=== PATIENT | male | born 1975 | race Caucasian/White ===

== ENCOUNTER 2016-12-11 12:25 | Emergency (ER) | payer BC ==
[2016-12-11 12:43] VITALS: BMI 30.5
[2016-12-11] MEDS ORDERED: ACETAMINOPHEN 500 MG TABLET (FP) PO ONE (13:41)
[2016-12-11] MEDS ORDERED: ACETAMINOPHEN 325 MG TABLET (FP) ONE (13:56)
[2016-12-11] MEDS ORDERED: SODIUM CHLORIDE 1,000 ML IV STA ×2 (13:56→15:22)
--- NOTE | 2016-12-11 14:04 | PDOC ---
History of Present Illness - General History Source: Patient Exam Limitations: No Limitations - History of Present Illness Initial Comments: 12/11/16 13:57 41-year-old male presents the ED with complaints of cough, headache, throat discomfort, and chills for the past 2 days. Patient was sent here by Dr. Cee for further evaluation since he was concerned with the tachycardia and low O2 sat. Patient states was at the office for an annual physical when symptoms were noted. 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 patient denies smoking history or medical history Timing/Duration: reports: other (2 days) Severity: reports: moderate Possible Cause: Yes: no prior episodes Modifying Factors: improves with: coughing Associated Symptoms: reports: cough, fever/chills, muscle aches, sore throat <Rosamaria Patel - Last Filed: 12/11/16 17:49> <Sea Calderon - Last Filed: 12/12/16 09:01> - General Chief Complaint: Shortness of Breath Stated Complaint: SOB (PCP SENT) Time Seen by Provider: 12/11/16 13:17 Past History - Past Medical History GI Disorders: Yes (gerd) HTN: Yes - Surgical History Abdominal Surgery: Yes (PYLORIC STENOSIS) Cholecystectomy: Yes GI Surgery: Yes (EXP LAP) - Psycho/Social/Smoking Cessation Hx Anxiety: No Suicidal Ideation: No Smoking History: Never smoked Have you smoked in the past 12 months: No Information on smoking cessation initiated: No Hx Alcohol Use: No Drug/Substance Use Hx: No Substance Use Type: Alcohol Patient Lives Alone: No Lives with/in: spouse/SO <Rosamaria Patel - Last Filed: 12/11/16 17:49> <Sea Calderon - Last Filed: 12/12/16 09:01> - Past Medical History Allergies/Adverse Reactions: Allergies Allergy/AdvReac Type Severity Reaction Status Date / Time No Known Allergies Allergy Verified 12/11/16 12:40 Home Medications: Ambulatory Orders Amlodipine Besylate [Norvasc -] 5 mg PO DAILY #14 tablet 12/11/16 Levofloxacin [Levaquin -] 500 mg PO DAILY #6 tablet 12/11/16 Respiratory Specific PMHX - Complaint Specific PMHX Bronchitis: No <Rosamaria Patel - Last Filed: 12/11/16 17:49> Review of Systems - Review of Systems Able to Perform ROS?: Yes Constitutional: Yes: Chills, Fever HEENTM: Yes: Throat Pain Respiratory: Yes: Cough. No: SOB with Exertion Cardiac (ROS): No: Symptoms Reported ABD/GI: No: Symptoms Reported : No: Symptoms Reported Musculoskeletal: Yes: Muscle Pain Integumentary: No: Symptoms Reported Neurological: No: Symptoms reported <Rosamaria Patel - Last Filed: 12/11/16 17:49> *Physical Exam - Vital Signs Last Vital Signs Temp Pulse Resp BP Pulse Ox 99.9 F H 113 H 18 158/117 100 12/11/16 12:40 12/11/16 12:55 12/11/16 12:40 12/11/16 12:40 12/11/16 12:55 - Physical Exam General Appearance: Yes: Nourished, Appropriately Dressed. No: Apparent Distress HEENT: positive: EOMI, NATHANAEL, TMs Normal, Pharynx Normal. negative: Pale Conjunctivae Neck: positive: Supple. negative: Lymphadenopathy (R), Lymphadenopathy (L) Respiratory/Chest: positive: Lungs Clear, Normal Breath Sounds. negative: Respiratory Distress, Accessory Muscle Use Cardiovascular: positive: Regular Rhythm, Tachycardia. negative: Murmur Gastrointestinal/Abdominal: positive: Soft. negative: Tenderness Extremity: negative: Pedal Edema Integumentary: positive: Normal Color, Warm, Moist Neurologic: positive: Motor Strength 5/5 ( ambulatory) <Rosamaria Patel - Last Filed: 12/11/16 17:49> - Vital Signs Last Vital Signs Temp Pulse Resp BP Pulse Ox 98.2 F 87 22 135/92 100 12/11/16 15:35 12/11/16 15:35 12/11/16 15:35 12/11/16 15:35 12/11/16 15:35 <Sea Calderon - Last Filed: 12/12/16 09:01> Heart Score/ECG Review - ECG Impressions Comment:: 12/11/16 17:39 Twelve-lead EKG was performed and reviewed by me. There is normal sinus rhythm with a rate of 108 The axis is normal. The intervals are normal. There is normal R wave progression There are no ST or T wave abnormalities. Impression: sinus tachycardia <Sea Calderon - Last Filed: 12/12/16 09:01> ED Treatment Course - LABORATORY CBC & Chemistry Diagram: 12/11/16 14:01 12/11/16 14:01 - RADIOLOGY Radiology Studies Ordered: Category Date Time Status CHEST PA & LAT [RAD] Stat Radiology 12/11/16 13:56 Ordered <Rosamaria Patel - Last Filed: 12/11/16 17:49> - LABORATORY CBC & Chemistry Diagram: 12/11/16 14:01 12/11/16 14:01 - ADDITIONAL ORDERS Additional order review: Laboratory Results 12/11/16 12/11/16 12/11/16 14:20 14:01 14:01 D-Dimer < 200 Sodium 136 Potassium 4.0 Chloride 99 Carbon Dioxide 28 Anion Gap 9 BUN 17 Creatinine 1.1 Creat Clearance w eGFR > 60 Random Glucose 115 H D Lactic Acid 2.688 H* Calcium 9.3 Total Bilirubin 0.7 AST 21 ALT 42 Alkaline Phosphatase 90 Total Protein 8.5 H Albumin 4.4 12/11/16 13:50 Influenza Types A,B Antigen (NIA) - Final Nasopharyngeal Swab - Final 12/11/16 14:01 RBC 4.99 MCV 92.5 MCHC 34.6 RDW 13.2 MPV 7.7 Neutrophils % 68.6 Lymphocytes % 16.7 Monocytes % 11.0 H Eosinophils % 2.7 Basophils % 1.0 - Medications Given in the ED: ED Medications Discontinued Medications Generic Name Dose Route Start Last Admin Trade Name Freq PRN Reason Stop Dose Admin Acetaminophen 975 mg 12/11/16 13:41 12/11/16 13:55 Tylenol - PO 12/11/16 13:42 975 mg ONCE ONE Administration Amlodipine Besylate 2.5 mg 12/11/16 15:02 12/11/16 15:37 Norvasc - PO 12/11/16 15:03 2.5 mg ONCE ONE Administration Sodium Chloride 1,000 mls @ 1,000 mls/hr 12/11/16 13:56 12/11/16 14:02 Normal Saline - IV 12/11/16 14:55 1,000 mls/hr ASDIR STA Administration Sodium Chloride 1,000 mls @ 1,000 mls/hr 12/11/16 15:22 12/11/16 15:37 Normal Saline - IV 12/11/16 16:21 1,000 mls/hr ASDIR STA Administration Levofloxacin 500 mg/ 100 mls @ 100 mls/hr 12/11/16 15:41 12/11/16 16:10 Miscellaneous IVPB 12/11/16 16:40 100 mls/hr ONCE ONE Administration <Sea Calderon - Last Filed: 12/12/16 09:01> Medical Decision Making - Medical Decision Making 12/11/16 14:06 Patient sent in by Dr. Jeannie Chen for evaluation. Patient with URI complaints. Patient found to be febrile here upon arrival. Patient ordered for influenza and septic workup patient also ordered for IV fluids. 12/11/16 15:25 Laboratory Tests 12/11/16 12/11/16 12/11/16 14:01 14:01 14:01 WBC 7.1 Hgb 15.9 Hct 46.1 Neutrophils % 68.6 Monocytes % 11.0 H D-Dimer Sodium 136 Potassium 4.0 Chloride 99 Carbon Dioxide 28 Anion Gap 9 BUN 17 Creatinine 1.1 Creat Clearance w eGFR > 60 Random Glucose 115 H D Lactic Acid 2.688 H* AST 21 ALT 42 12/11/16 14:20 WBC Hgb Hct Neutrophils % Monocytes % D-Dimer < 200 Sodium Potassium Chloride Carbon Dioxide Anion Gap BUN Creatinine Creat Clearance w eGFR Random Glucose Lactic Acid AST ALT influenza negative. Chest x-ray negative. 2nd lactic acid (to be collected after 2 nd bag)and IVF ordered. Dr. Chen to be notified 12/11/16 15:[address] Chen who agrees patient may be discharged home after receiving a dose of IV Levaquin then to be discharged home with amlodipine and by mouth Levaquin. 12/11/16 17:49 Selected Entries 12/11/16 15:35 Temperature 98.2 F Pulse Rate [ 87 Right Radial] Respiratory 22 Rate Blood Pressure 135/92 [Left Arm] O2 Sat by Pulse 100 Oximetry (%) <Rosamaria Patel - Last Filed: 12/11/16 17:49> - Medical Decision Making 12/11/16 17:39 The patient was seen and evaluated in conjunction with GILLIAN Patel under my direct supervision, ancillary studies were reviewed. I agree with the plan as outlined by GILLIAN Patel. <Sea Calderon - Last Filed: 12/12/16 09:01> *DC/Admit/Observation/Transfer <Rosamaria Patel - Last Filed: 12/11/16 17:49> <Sea Calderon - Last Filed: 12/12/16 09:01> Diagnosis at time of Disposition: Cough Fever Qualifiers: Fever type: unspecified Qualified Code(s): R50.9 - Fever, unspecified - Discharge Dispostion Disposition: HOME Condition at time of disposition: Improved - Prescriptions Prescriptions: Levofloxacin [Levaquin -] 500 mg PO DAILY #6 tablet Amlodipine Besylate [Norvasc -] 5 mg PO DAILY #14 tablet - Referrals Referrals: Jeannie Chen MD [Primary Care Provider] - - Patient Instructions Printed Discharge Instructions: DI for Fever (Symptom) -- Adult, DI for Cough - - Adult Additional Instructions: Although your chest x-ray and labs did not show an acute bacterial pneumonia. You will be treated with Levaquin for early pneumonia which you need to take until completed starting tomorrow since your given your first dose here in the ER. You will also be given a prescription for Norvasc as per Dr. Chen which you need to take daily. follow up with your PCP and/or return to ED if symptoms worsen
[2016-12-11 14:32] LABS: EOSINOPHIL 2.7 % (0-4.5); MCHC 34.6 g/dl (32.0-35.9); MEAN CELL VOLUME 92.5 fl (80-96); MEAN PLT VOLUME 7.7 fl (7.5-11.1); NEUTROPHILS 68.6 % (42.8-82.8); PLATELET COUNT 263 K/MM3 (134-434); RDW 13.2 % (11.9-15.9); WHITE BLOOD COUNT 7.1 K/mm3 (4.0-10.0)
[2016-12-11 14:42] LABS: ALBUMIN 4.4 g/dl (3.4-5.0); ALK PHOS 90 U/L (45-117); ANION GAP 9 (8-16); BILIRUBIN,TOTAL 0.7 mg/dL (0.2-1.0); CALCIUM 9.3 mg/dL (8.5-10.1); CO2 28 mmol/L (21-32); CREATININE 1.1 mg/dL (0.7-1.3); GLUCOSE,RANDOM 115 mg/dL (74-106); SGOT/AST 21 U/L (15-37); SGPT/ALT 42 U/L (12-78); TOT PROT 8.5 g/dl (6.4-8.2)
[2016-12-11] MEDS ORDERED: amLODIPine BESYLATE 2.5 MG TABLET (FP) PO ONE (15:02)
[2016-12-11] MEDS ORDERED: amLODIPine BESYLATE 5 MG TABLET (FP) ONE (15:34)
[2016-12-11] MEDS ORDERED: LEVOFLOXACIN 500 MG IVPB 100 ML IVPB ONE (16:05)
[2016-12-11 18:19] VITALS: BP 140/97; PULSE 86; TEMP 98.3
--- NOTE | 2016-12-11 23:14 | EKG ---
Test Reason : Blood Pressure : / mmHG Vent. Rate : 108 BPM Atrial Rate : 108 BPM P-R Int : 116 ms QRS Dur : 094 ms QT Int : 346 ms P-R-T Axes : 018 024 036 degrees QTc Int : 463 ms SINUS TACHYCARDIA OTHERWISE NORMAL ECG NO PREVIOUS ECGS AVAILABLE Confirmed by ALEX FOX MD ([id number]) on 12/11/2016 11:13:51 PM Referred By: Confirmed By:ALEX FOX MD
== END 2016-12-11 18:38 | disposition home or self-care (01) ==
LOC: JER 12:25
PROC: 3E03329 Introduction of Other Anti-infective into Peripheral Vein, Percutaneous Approach (ICD-10-PCS; principal; 2016-12-11)
PROC: 3E0337Z Introduction of Electrolytic and Water Balance Substance into Peripheral Vein, Percutaneous Approach (ICD-10-PCS; 2016-12-11)
DX: R50.9 Fever, unspecified (principal); R05 Cough; I10 Essential (primary) hypertension; K21.9 Gastro-esophageal reflux disease without esophagitis
CPT/HCPCS: 36415; 71020-TC; 80053; 83605; 85025; 85379; 87040; 87804; 93005; 93010; 99285-25

== ENCOUNTER 2023-11-04 13:48 | Emergency (ER) | payer BC ==
[2023-11-04 13:55] VITALS: BP 133/80; PULSE 99; RESP 18; TEMP 98.3; BMI 25.0
[2023-11-04] MEDS ORDERED: LACTATED RINGERS SOLUTION 1000 ML INFUS.BAG IV ONE (14:31)
[2023-11-04] MEDS ORDERED: FAMOTIDINE 20 MG/50 ML IVPB 20 MG/50 ML MG IVPB ONE ×2 (14:31→15:34)
[2023-11-04] MEDS ORDERED: ONDANSETRON 4 MG/2 ML VIAL IVPUSH ONE (14:31)
[2023-11-04] MEDS ORDERED: ACETAMINOPHEN 1000 MG/100 ML BAG IVPB ONE ×2 (14:31→18:39)
[2023-11-04] MEDS ORDERED: ACETAMINOPHEN INJECTION 100 ML IVPB ONE ×2 (15:34→18:44)
[2023-11-04] MEDS ORDERED: ONDANSETRON 4 MG/2 ML VIAL ONE (15:34)
[2023-11-04 15:42] LABS: HEMATOCRIT 45.5 % (35.4-49); HEMOGLOBIN 15.5 GM/dL (11.7-16.9); MCH 30.8 pg (25.7-33.7); MEAN CELL VOLUME 90.5 fl (80-96); MEAN PLT VOLUME 7.1 fl (7.5-11.1); PLATELET COUNT 273 10^3/uL (134-434); RBC 5.03 M/mm3 (4.00-5.60); RDW 13.4 % (11.9-15.9); WHITE BLOOD COUNT 14.2 K/mm3 (4.0-10.0)
[2023-11-04 15:49] LABS: INR 1.17 (0.83-1.09); PROTHROMBIN TIME (PATIENT) 13.6 SEC (9.7-13.0)
[2023-11-04 15:51] LABS: ACTIVATED PTT 29.6 SECONDS (25.2-36.5)
[2023-11-04 16:23] LABS: POTASSIUM 3.8 mmol/L (3.5-5.1)
[2023-11-04 16:26] LABS: ALBUMIN 3.7 g/dl (3.4-5.0); BLOOD UREA NITROGEN 19.4 mg/dL (7-18); CALCIUM 9.4 mg/dL (8.5-10.1); MAGNESIUM 1.9 mg/dL (1.8-2.4)
[2023-11-04 16:31] LABS: TOT PROT 7.3 g/dl (6.4-8.2)
[2023-11-04 16:35] LABS: CREATININE 0.9 mg/dL (0.55-1.3)
[2023-11-04 17:24] LABS: ANISOCYTOSIS 0; MACROCYTOSIS 0
[2023-11-04] MEDS ORDERED: PANTOPRAZOLE SODIUM 40 MG VIAL IVPUSH ONE (18:40)
[2023-11-04] MEDS ORDERED: PANTOPRAZOLE SODIUM 40 MG VIAL ONE (18:44)
== END 2023-11-04 19:30 | disposition home or self-care (01) ==
LOC: JER 13:48
PROC: 3E033GC Introduction of Other Therapeutic Substance into Peripheral Vein, Percutaneous Approach (ICD-10-PCS; principal; 2023-11-04)
PROC: 3E033NZ Introduction of Analgesics, Hypnotics, Sedatives into Peripheral Vein, Percutaneous Approach (ICD-10-PCS; 2023-11-04)
PROC: 3E033GC Introduction of Other Therapeutic Substance into Peripheral Vein, Percutaneous Approach (ICD-10-PCS; 2023-11-04)
PROC: 3E033GC Introduction of Other Therapeutic Substance into Peripheral Vein, Percutaneous Approach (ICD-10-PCS; 2023-11-04)
PROC: 3E033NZ Introduction of Analgesics, Hypnotics, Sedatives into Peripheral Vein, Percutaneous Approach (ICD-10-PCS; 2023-11-04)
DX: R10.13 Epigastric pain (principal); R11.2 Nausea with vomiting, unspecified; R42 Dizziness and giddiness; R10.11 Right upper quadrant pain; K29.70 Gastritis, unspecified, without bleeding; Z20.822 Contact with and (suspected) exposure to COVID-19
CPT/HCPCS: 0241U-QW; 36415; 71045-TC-FY; 74177-TC; 80053; 83690; 83735; 84484; 85025; 85610; 85730; 93005; 93010; 99285-25; Q9967